=== PATIENT | male | born 1955 | race African-American/Black ===

== ENCOUNTER 2021-12-25 22:40 | Emergency (ER) | payer OTHER ==
[~2021-12-25] VITALS: Ht 180.3 cm; Wt 77.0 kg
[2021-12-25 23:30] VITALS: BP 117/78
[2021-12-26] MEDS ORDERED: TETANUS, DIPHTHERIA, PERTUSSIS VAC/PF 0.5ML (>10YR OLD) IM ONE (00:15)
[2021-12-26] MEDS ORDERED: LEVO500T89 MT (00:17)
== END 2021-12-26 01:34 | disposition home or self-care (01) ==
LOC: ER 22:40
DX: S91.332A Puncture wound without foreign body, left foot, initial encounter (principal); Z87.828 Personal history of other (healed) physical injury and trauma; W45.0XXA Nail entering through skin, initial encounter; Y93.89 Activity, other specified; Y92.89 Other specified places as the place of occurrence of the external cause; Y99.8 Other external cause status
CPT/HCPCS: 90471; 90715; 99283

== ENCOUNTER 2024-05-23 15:37 | Emergency (ER) | payer OTHER, MEDICAID ==
[~2024-05-23] VITALS: Ht 172.7 cm; Wt 75.0 kg
[~2024-05-23 15:37] MED LIST: LEVO-65 MT
[2024-05-23 15:45] VITALS: BP 142/66; PULSE 66; RESP 18; TEMP 98.1; O2SAT 97
== END 2024-05-23 20:17 | disposition home or self-care (01) ==
LOC: ER 15:37
DX: Z13.9 Encounter for screening, unspecified (principal)
CPT/HCPCS: 99281

== ENCOUNTER 2024-09-03 08:21 | Emergency (ER) | payer MEDICARE, MEDICAID ==
[~2024-09-03] VITALS: Ht 182.9 cm; Wt 63.0 kg
[2024-09-03 08:45] VITALS: O2SAT 99
[2024-09-03 09:30] LABS: CLARITY URINE CLEAR (CLEAR); COLOR URINE YELLOW (YELLOW); GLUCOSE URINE NEGATIVE (NEGATIVE); KETONES URINE 1+ (NEGATIVE); LEUKOCYTE ESTERASE URINE NEGATIVE (NEGATIVE); NITRITE URINE NEGATIVE (NEGATIVE); OCCULT BLOOD URINE NEGATIVE (NEGATIVE); PH URINE 5.5 (4.5-8.0); PROTEIN URINE NEGATIVE (NEGATIVE); SPECIFIC GRAVITY URINE 1.022 (1.005-1.030); UROBILINOGEN URINE 0.2 E.U./dL (0.2-1.0)
[2024-09-03 09:55] LABS: BASOPHILS % 0.5 % (0.0-2.0); EOSINOPHILS % 0.2 % (0.0-5.0); HEMATOCRIT. 40.1 % (42.0-52.0); HEMOGLOBIN. 13.7 g/dL (14.0-18.0); LYMPHOCYTES % 16.8 % (20.0-50.0); MEAN CORPUSCULAR HEMOGLOBIN 31.3 pg (28.0-32.0); MEAN CORPUSCULAR HGB CONC 34.2 g/dL (31.0-37.0); MEAN CORPUSCULAR VOLUME 91.4 fL (80.0-94.0); MEAN PLATELET VOLUME 6.3 fl (7.4-10.4); MONOCYTES % 7.2 % (2.0-8.0); NEUTROPHILS % 75.3 % (40.0-76.0); PLATELET 272 x1000/uL (130-400); RED BLOOD CELL COUNT 4.39 mill/uL (4.7-6.1)
[2024-09-03 10:04] LABS: CHLORIDE 97 mEq/L (98-107); POTASSIUM 4.7 mEq/L (3.5-5.1); SODIUM 131 mEq/L (136-145)
[2024-09-03 10:05] LABS: CARBON DIOXIDE 28 mEq/L (21-32)
[2024-09-03 10:06] LABS: CALCIUM 9.7 mg/dL (8.7-10.4)
[2024-09-03 10:10] LABS: CREATININE 1.1 mg/dL (0.6-1.3); GLUCOSE 119 mg/dL (70-105)
[2024-09-03 10:11] LABS: UREA NITROGEN BLOOD 13 mg/dL (9-23)
[2024-09-03 10:12] LABS: ALANINE AMINOTRANSFERASE 11 IU/L (10-49); ALBUMIN 4.1 g/dL (3.2-4.8); ASPARTATE AMINOTRANSFERASE 25 IU/L (<34)
[2024-09-03 10:13] LABS: BILIRUBIN DIRECT 0.2 mg/dL (<=3.0); BILIRUBIN TOTAL 0.6 mg/dL (0.1-1.0); PROTEIN TOTAL 6.9 g/dL (6.0-8.3)
[2024-09-03] MEDS: ACETAMINOPHEN 325MG TABLET PO ONE (13:24)
[2024-09-03] MEDS: IBUPROFEN 400MG TABLET PO ONE (13:24)
[2024-09-03] MEDS: LIDOCAINE 5% PATCH TOP SCH (13:24)
[2024-09-03 13:28] VITALS: BP 140/87; PULSE 68; RESP 16; TEMP 36.83628; O2SAT 99
== END 2024-09-03 15:28 | disposition home or self-care (01) ==
LOC: ER 08:21
DX: M54.9 Dorsalgia, unspecified (principal)
CPT/HCPCS: 36415; 71045; 74176; 80048; 80076; 81003; 85025; 99284